=== PATIENT | female | born 1980 | race Caucasian/White ===

== ENCOUNTER 2016-08-09 05:25 | Inpatient (IN) | payer BC ==
[~2016-08-09] VITALS: Ht 165.1 cm; Wt 71.5 kg
[2016-08-09] VITALS (10 sets, daily range): BP systolic 109–142; BP diastolic 56–83; PULSE 71–100; RESP 16–19; Ht 165.1 cm; Wt 71.5 kg
[~2016-08-09 05:25] MED LIST: CALC500T PO; FERR-31 PO; FOLI-49 PO; PREN1TAB62 PO
[2016-08-09] MEDS ORDERED: LACTATED RINGER'S 1,000 ML IV SCH (05:39)
[2016-08-09] MEDS ORDERED: MISOPROSTOL 200 MCG TAB PR PRN ×2 (06:00→14:00)
[2016-08-09] MEDS ORDERED: CARBOPROST 250 MCG INJ IM PRN ×2 (06:00→14:00)
[2016-08-09] MEDS ORDERED: OXYTOCIN 30 UNITS/LR 500 ML IV SCH (06:00)
[2016-08-09] MEDS ORDERED: CEFAZOLIN 2 GM/50 ML (PMX) 50 ML IV SCH (06:00)
[2016-08-09] MEDS ORDERED: OXYTOCIN 30 UNITS/LR 500 ML IV PRN ×2 (06:00→14:00)
[2016-08-09] MEDS ORDERED: METHYLERGONOVINE 0.2 MG INJ IM PRN ×2 (06:00→14:00)
[2016-08-09 06:13] LABS: BASOPHILS % 0.2 % (0.0-2.0); EOSINOPHILS # 0.1 10^3/ul (0.0-0.5); EOSINOPHILS % 0.9 % (0.0-7.0); HEMATOCRIT 38.5 % (37.0-47.0); HEMOGLOBIN 13.3 g/dl (12.0-16.0); LYMPHOCYTES # 2.3 10^3/ul (0.8-2.9); LYMPHOCYTES % 22.3 % (15.0-51.0); MEAN CORPUSCULAR HGB CONC 34.5 g/dl (32.0-37.0); MEAN CORPUSCULAR VOLUME 89.8 fl (82.0-101.0); MEAN PLATELET VOLUME 10.1 fl (7.4-10.4); MONOCYTE # 0.9 10^3/ul (0.3-0.9); MONOCYTES % 8.5 % (0.0-11.0); NEUTROPHIL # 6.9 10^3/ul (1.6-7.5); NEUTROPHILS % 68.1 % (39.0-77.0); PLATELET COUNT 246 10^3/UL (140-440); RED BLOOD COUNT 4.29 10^6/ul (4.20-5.40); RED CELL DISTRIBUTION WIDTH 13.3 % (11.5-14.5); UNCORRECTED WBC 10.2 10^3/ul (4.8-10.8); WHITE BLOOD COUNT 10.2 10^3/ul (4.8-10.8)
[2016-08-09 06:19] LABS: INR 0.94; PROTIME 12.6 Sec (12.2-14.2)
[2016-08-09 06:20] LABS: PARTIAL THROMBOPLASTIN TIME 26.7 Sec (25.0-35.0)
[2016-08-09 06:36] LABS: CONDITION 1
[2016-08-09] MEDS ORDERED: OXYTOCIN 30 UNITS/LR 500 ML IV ONE (08:24)
[2016-08-09] MEDS ORDERED: EPHEDrine SULFATE 50 MG/5 ML SYG ONE (08:24)
[2016-08-09] MEDS ORDERED: morphine SULFATE/PF (10 MG/10 ML) INJ ONE (08:25)
[2016-08-09] MEDS ORDERED: ONDANSETRON 4 MG INJ ONE (08:25)
[2016-08-09] MEDS ORDERED: METOCLOPRAMIDE 10 MG INJ ONE (08:25)
[2016-08-09] MEDS ORDERED: OXYTOCIN 10 UNIT INJ ONE (08:25)
--- NOTE | 2016-08-09 08:28 | HP ---
Date/Time of Note Date/Time of Note DATE: 08/09/16 TIME: 08:20 OB - History Hx of Present Free Text/Dictation This is a 35 years old white female 4 para 1 SAB 2 with EDC of August 22, 2016 history of previous admitted at 39 weeks to [facility] for repeat This patient has been under the care of the [facility] and her course was not complicated with gestational diabetes - induced hypertension or any other medical or surgical conditions patient's past history [place] at age 10, history of one with section to spontaneous breast augmentation and tonsillectomy yeast 1999 Estimated Due Date: Aug 16, 2016 : 4 Para: 1 Spontaneous : 2 Care: Good Care Ultrasounds: Normal mid trimester US Obstetrical Complications: None Medical Complications: None Past Family/Social History * Past Medical, Surgical, Family and Obstetric Histories reviewed from chart. Rubella: immune RPR/VDRL: Negative GBS Status: Negative HBsAG: Negative OB Admission Exam Vital Signs Vital Signs Vital Signs Date Time Temp Pulse Resp B/P Pulse Ox O2 Delivery O2 Flow Rate FiO2 08/09/16 05:38 98.7 100 18 132/81 Room Air Physical Exam HEENT: WNL Heart: Rhythm Normal Lungs: Clear, Equal Abdomen: WNL Extremities: Normal Reflexes: Normal Cervical Dilatation: None Effacement: 0% Station: -1 Membranes: Intact Heart Rate: 130's Accelerations: Accelerations Present Decelerations: No Decelerations Varibility: Absent Last 72 hours Lab Results CBC & BMP 08/09/16 05:40 YANI SRINIVASAN MD Aug 09, 2016 08:28
[2016-08-09] MEDS ORDERED: BUPIVACAINE 0.75%/DEXT (SPINAL) 2 ML INJ ONE (08:31)
[2016-08-09 09:27] LABS: BARBITURATES NEGATIVE (NEGATIVE); BENZODIAZEPINES NEGATIVE (NEGATIVE); CANNABINOIDS NEGATIVE (NEGATIVE); COCAINE NEGATIVE (NEGATIVE); OPIATES NEGATIVE (NEGATIVE)
--- NOTE | 2016-08-09 10:19 | OPPN ---
Date/Time of Note Date/Time of Note DATE: 08/09/16 TIME: 10:14 Operative/Procedure Note 39 weeks previous section admitted for repeat Pre-Operative Diagnosis Same as above Post-Operative Diagnosis Same as above Surgeon: YANI SRINIVASAN MD [place] Polisher Operator: NEISHA LOVE MD Anesthesiologist: GARRETT PINZON MD Findings Live baby girl Apgars 7 and 9 Implants/Grafts: Not applicable Estimated blood loss: other (500 mL) Drains: Not applicable Specimens: Not Applicable Complications: None Anesthesia type: spinal YANI SRINIVASAN MD Aug 09, 2016 10:19
--- NOTE | 2016-08-09 10:42 | DELSUM ---
Delivery Summary A-C Datetime Report Generated by CPN: 08/09/2016 10:42 DELIVERY PERSONNEL Residential Care Facility Manager: Chely, Neyeeda MATERNAL INFORMATION Delivery Anesthesia: Spinal Medications in Delivery: SEE ANESTHESIA NOTES Estimated Blood Loss (ml): 600 Placenta Cultured: No Maternal Complications: None LABOR SUMMARY EDC: 08/16/2016 00:00 No. Babies in Womb: 1 Attempted: No Labor Anesthesia: None LABOR INFORMATION Reason for Induction: Not Applicable Oxytocin: N/A Group B Beta Strep: Positive Antibiotics # of Doses: ANCEF 2 GMS IVPB Antibiotics Time of Last Dose: ANCEF AT 0825 Steroids Given: None Reason Steroids Not Administered: Not Applicable MEMBRANES Membranes Rupture Method: Artificial Rupture of Membranes: 08/09/2016 08:52 Length of Rupture (hr): 0.02 Amniotic Fluid Color: Clear Amniotic Fluid Amount: Moderate Amniotic Fluid Odor: None STAGES OF LABOR Stage 3 hr: 0 Stage 3 min: 0 CSECTION DELIVERY Primary Indication: Repeat Elective Secondary Indication: N/A CSection Urgency: Elective CSection Incidence: Repeat Labor: No Labor Elective: Elective CSection Incision: Lower Uterine Transverse BABY A INFORMATION Delivery Date/Time: 08/09/2016 08:53 Method of Delivery: Born in Route : No : N/A Forceps: N/A Vacuum Extraction: N/A Shoulder Dystocia : N/A SHOULDER DYSTOCIA BABY A Delivery Date/Time: 08/09/2016 08:53 PRESENTATION/POSITION BABY A Presentation: Cephalic Cephalic Presentation: Vertex Breech Presentation: N/A PLACENTA INFORMATION BABY A Placenta Delivery Time : 08/09/2016 08:53 Placenta Method of Delivery: Manual Removal Placenta Status: Delivered SCORES BABY A Heart Rate 1 min: >100 bpm Resp Effort 1 min: Good Cry Reflex Irritability 1 min: Cough/Sneeze/Pulls Away Muscle Tone 1 min: Some Flexion of Extrem Color 1 min: Blue/Pale Resuscitation Effort 1 min: Tactile Stimulation SCORE 1 MIN: 7 Heart Rate 5 min: >100 bpm Resp Effort 5 min: Good Cry Reflex Irritability 5 min: Cough/Sneeze/Pulls Away Muscle Tone 5 min: Some Flexion of Extrem Color 5 min: Completely [place] SCORE 5 MIN: 9 INFANT INFORMATION BABY A Gestational Age at Delivery: 39.0 Gestational Status: Full Term- 39- 40.6 Weeks Outcome : Liveborn Condition : Stable Sex: Female IDENTIFICATION/MEDS BABY A ID Band Number: [id number] ID Band Location: Right Leg; Left Arm Sensor Applied: Yes Sensor Number: [id number] Sensor Location : Cord Clamp Vitamin K Given : Not Given Erythromycin Given: Not Given WEIGHT/LENGTH BABY A Infant Birthweight (gm): 3960 Weight (lb): 8 Infant Weight (oz): 12 Length (in): 21.00 Length (cm): 53.34 CORD INFORMATION BABY A No. Cord Vessels: 3 Nuchal Cord : N/A Cord Blood Taken: Yes Banking/Donate Info: N/A Infant Suction: Mouth; Nose ASSESSMENT BABY A Complications: Multiple Variable Decels Physical Findings at Delivery: Other Physical Findings- Other: BABY'S MUSCLE TONE MINIMAL Respirations: Grunting; Intercostal Retractions [employer]/ALS Called : Yes Care By: JOAQUINA MONTERROSO RN ; Ledy Enciso RT Transferred To: NICU
--- NOTE | 2016-08-09 10:42 | OPRPT ---
Intraop Record Datetime Report Generated by CPN: 08/09/2016 10:42 Datetime: 08/09/2016 08:29 OR Number: 3 TIMES/PROCEDURE Arrive OR: 08/09/2016 08:11 Depart OR: 08/09/2016 09:43 Anesthesia Start: 08/09/2016 08:22 Anesthesia End: 08/09/2016 09:52 Surgery Start: 08/09/2016 08:47 Surgery End: 08/09/2016 09:39 Preoperative Dx: REPEAT SECTION Surgical Procedure: Section Postoperative Dx: REPEAT SECTION C/S Decision Time: 08/09/2016 07:30 C/S Decision to Incision (min): 77 Uterine Incision: 08/09/2016 08:47 PERSONNEL Surgeon: Alisha Ferris Scrub: David Callahan Anesthesia Care Provider: Josh Ashford Care: See Delivery Summary for Infant Care Providers Others in OR: FOB Anesthesia Type: Spinal ASA Level: II RISK FOR INJURY Mode of Arrival: Ambulate Procedure Time Out: Correct Patient Identity; Accurate Procedure Consent Form; Agreement on Procedu re to be Done; Correct Patient Position; Relevant Images and Results are Properly Labeled and Displa yed; Addressed Need to Administer Antibiotics or Fluids for Irrigation; Safety Precautions Based on Patient History or Medication Use; Allergies Reviewed Preoperative Information: Preoperative Checklist Reviewed; Allergies Reviewed; NPO Status Verified RISK FOR ANXIETY/KNOW DEFICIT Emotional Status: Calm/Relaxed Interventions: Provided Education Based on Age and Identified Needs; Communicated Patient Concerns to Appropriate Members of the Health Care Team; Explained Sequence of Events and Perioperative Routi ne; Evaluated Response to Instructions RISK FOR PAIN Pain Teaching: Instructed on Pain Scale Pain Scale: 0.0 PREOPERATIVE OUTCOMES Preoperative Outcomes: Verbalizes/Indicates Decreased Anxiety, Ability to [place], Understanding of Pr ocedure and Sequence of Events. Questions Answered; Demonstrates Adequate Pain Management; Verbaliz es Comfort Related to Transfer/Transport RISK FOR INFECTION Skin Pre-Operative Site: Intact Other Site Details: CLEAR, AND FREE OF REDNESS, INFECTION OR BREAKDOWN Clip: Clip Clip Location: CLOSED LEG ABDOMEN Prep: Yes Prep By: Daniel XIE Prep Solution: Chlorohexadine Other Prep: GOPI WIPES Catheter: Dong Catheter Size: 16 Catheter Inserted By: Daniel XIE Surgical Wound Class: I-Clean Drain Type/Size: NKA Dressing Type: Secured Gauze Risk for Impaired Skin Integrity Position in OR: Supine Bony Prominences Protection: Arms Tucked/Padded Positioning Devices: N/A Risk for Hypothermia Warming Interventions: N/A Risk for Injury Safety Straps Applied: Legs Sequential Compression Device: Yes Electrosurgical Unit: Yes Electrosurgical Unit Number: [id number] Bipolar Number: LOT#[id number] EXP. 2018-05-24 Ground Pad Location: Right Anterior Thigh Coag Number: 55 Cut Number: 55 Estimated Blood Loss- OR (ml): 600 1st Count Sponge Count: Correct Needle Count: Correct Blade Count: Correct Instrument Count: Correct 2nd Count Sponge Count: Correct Needle Count: Correct Instrument Count: Correct 3rd Count Sponge Count: Correct Needle Count: Correct Blade Count: Correct Instrument Count: Correct Final Count Sponge Count 4: Correct Needle Count 4: Correct Blade Count 4: Correct Instrument Count 4: Correct Surgeon Acknowledged Count: Yes Final Count Resolution: Count Correct Intraoperative Data Equipment: Non-Invasive Blood Pressure; Pulse Oximeter; EKG Blood Products Given: N/A Implants/Prosthesis Implants/Prosthesis: N/A Grafts: N/A Irrigation Irrigants: Sterile H2O Irrigation Amount: 1000 Specimens Specimens: N/A Cultures Cultures: N/A X-Ray X-Ray Taken: No Postoperative Skin: Warm Pain Scale: 0 Condition: Awake; Alert Temperature: 98.7 Operative Outcomes: Patient's Surgery Performed Using Aseptic Technique and in a Manner to Prevent Cross-Contamination; Skin Remains Smooth, Intact, Non-reddened, Non-irritated, Free of Bruising; Cor e Body Temperature Remains in Expected Range Transfer To: L_D Datetime: 08/09/2016 05:54 Latex Allergies/Reactions: No Latex Allergies Datetime: 08/09/2016 05:44 Drug Allergies/Reactions: No Known Allergies (08/09/2016) Datetime: 08/09/2016 05:31 Drug Allergies/Reactions: No Known Allergies (09/15/2014)
--- NOTE | 2016-08-09 10:57 | OPR ---
DATE OF OPERATION: 08/09/2016 PREOPERATIVE DIAGNOSES: 1. Intrauterine at 39 weeks' gestation. 2. History of previous section. POSTOPERATIVE DIAGNOSES: 1. Intrauterine at 39 weeks' gestation. 2. History of previous section. PROCEDURE: Repeat transverse low cervical section. SURGEON: Yani Ferris MD FEED MILL TENDER: Nicholas Love MD ANESTHESIA: Spinal. ANESTHESIOLOGIST: Dr. Ashford. FINDINGS: Live baby girl with the Apgars 7 and 9. DETAILS OF THE PROCEDURE: Under satisfactory spinal anesthesia, the patient was prepped and draped and placed in supine position, tilted to the left. Pfannenstiel incision was made, carried through the subcutaneous tissue. Bleeders brought under control with electrocautery. Fascia incised to the length of the incision. Rectus muscle divided in midline. Peritoneum exposed, entered through a t ransverse incision. Exploration of abdomen, gravid uterus with normal tubes and ovaries and thinned out lower segment of the uterus. Bladder flap was developed. Transverse incision was made in the lower segment of the uterus. Amniotic sac ruptured. Clear amniotic fluid noted. Live baby girl wa s delivered from occiput posterior. Nasal oropharyngeal suction was performed. Baby handed to the team for immediate attention. The patient received 20 units of Pitocin. Placenta delivere d manually intact. Uterine cavity cleaned with wet sponge and drainage established. Uterus closed in 2 layers using Monocryl #1 in continuous fashion. Peritoneal cavity was irrigated with warm sali ne. Sponge, needle and instrument reported to be correct. Abdominal peritoneum closed with 2-0 chr omic catgut continuously. Rectus muscle approximated with three interrupted 2-0 chromic catgut. Fa scia closed with #1 PDS. The subcutaneous tissue after suctioning approximated with 2-0 chromic cat gut. Skin closed with subcuticular 3-0 Monocryl. ESTIMATED BLOOD LOSS: 500 mL. Urine bag contained 200 mL of clear urine. Patient tolerated procedure well, transferred to recover y room in a good condition. Dictated By: YANI FERRIS MD HF/NTS Conf#: [id number] DID#: [id number] CC: NICHOLAS LOVE MD;*EndCC*
[2016-08-09] MEDS ORDERED: KETOROLAC 30 MG INJ IV PRN (12:30)
[2016-08-09] MEDS ORDERED: LANOLIN 7 GM TUBE TOP PRN (14:00)
[2016-08-09] MEDS ORDERED: CEFAZOLIN 1 GM/50 ML (PMX) 50 ML IVPB SCH (14:00)
[2016-08-09] MEDS ORDERED: ACETAMINOPHEN/CODEINE #3 TAB PO PRN ×2 (14:00)
[2016-08-09] MEDS: OXYTOCIN 30 UNITS/LR 500 ML IV SCH ×3 (14:23→21:34)
[2016-08-09] MEDS ORDERED: NALOXONE (0.4 MG/ML) INJ IV PRN (14:30)
[2016-08-09] MEDS ORDERED: FENTAnyl 2MCG/ML-ROPIV 0.2% 100 ML BAG EPI SCH (14:30)
[2016-08-09] MEDS ORDERED: ONDANSETRON 4 MG INJ IV PRN (14:30)
[2016-08-09] MEDS ORDERED: morphine 2 MG INJ IV PRN (14:30)
[2016-08-09] MEDS: KETOROLAC 30 MG INJ IV PRN (20:47)
[2016-08-09] MEDS: SENNA/DOCUSATE NA (8.6MG/50MG) TAB PO SCH (21:00)
[2016-08-09] MEDS: DIPHENHYDRAMINE 50 MG INJ IV PRN (22:22)
[2016-08-09] MEDS: LACTATED RINGER'S 1,000 ML IV SCH (22:22)
[2016-08-10 00:04] VITALS: BP 100/53; PULSE 79; RESP 18
[2016-08-10] MEDS: OXYTOCIN 30 UNITS/LR 500 ML IV SCH ×2 (01:34→05:34)
[2016-08-10 04:50] VITALS: BP 98/56; PULSE 85; RESP 18
[2016-08-10] MEDS: KETOROLAC 30 MG INJ IV PRN (04:52)
[2016-08-10] MEDS: LACTATED RINGER'S 1,000 ML IV SCH (04:58)
[2016-08-10] MEDS: DIPHENHYDRAMINE 50 MG INJ IV PRN (04:58)
[2016-08-10 07:45] LABS: BASOPHILS % 0.3 % (0.0-2.0); EOSINOPHILS # 0.1 10^3/ul (0.0-0.5); EOSINOPHILS % 0.6 % (0.0-7.0); HEMATOCRIT 34.5 % (37.0-47.0); HEMOGLOBIN 11.7 g/dl (12.0-16.0); LYMPHOCYTES # 1.3 10^3/ul (0.8-2.9); LYMPHOCYTES % 13.8 % (15.0-51.0); MEAN CORPUSCULAR HEMOGLOBIN 30.9 pg (29.0-33.0); MEAN CORPUSCULAR VOLUME 90.8 fl (82.0-101.0); MEAN PLATELET VOLUME 9.4 fl (7.4-10.4); MONOCYTE # 0.7 10^3/ul (0.3-0.9); MONOCYTES % 7.6 % (0.0-11.0); NEUTROPHIL # 7.5 10^3/ul (1.6-7.5); NEUTROPHILS % 77.7 % (39.0-77.0); PLATELET COUNT 205 10^3/UL (140-440); RED CELL DISTRIBUTION WIDTH 13.4 % (11.5-14.5); UNCORRECTED WBC 9.6 10^3/ul (4.8-10.8); WHITE BLOOD COUNT 9.6 10^3/ul (4.8-10.8)
[2016-08-10 07:55] LABS: CONDITION 1
[2016-08-10 08:30] VITALS: BP 102/82; PULSE 87; RESP 17
[2016-08-10] MEDS: SENNA/DOCUSATE NA (8.6MG/50MG) TAB PO SCH ×2 (09:24→21:42)
[2016-08-10] MEDS: OXYCODONE/ACETAMINOPHEN (5/325) TAB PO PRN ×3 (09:24→21:43)
--- NOTE | 2016-08-10 11:07 | PN ---
Date/Time of Note Date/Time of Note DATE: 08/10/16 TIME: 11:06 OB Subjective Subjective Subjective Vital sign is stable, afebrile abdomen soft incision dry uterus firm bowel sound present extremity normal ambulation recommended OB Assessment/Plan Plan: Expectant Management YANI SRINIVASAN MD Aug 10, 2016 11:07
[2016-08-10] MEDS: IBUPROFEN 600 MG TAB PO SCH ×2 (12:59→18:41)
[2016-08-10 15:45] VITALS: BP 94/51; PULSE 86; RESP 16
[2016-08-10 21:15] VITALS: BP 113/56; PULSE 81; RESP 19
[2016-08-11] MEDS: IBUPROFEN 600 MG TAB PO SCH ×4 (00:51→17:18)
[2016-08-11 04:30] VITALS: BP 110/57; PULSE 82; RESP 18
[2016-08-11] MEDS: OXYCODONE/ACETAMINOPHEN (5/325) TAB PO PRN ×2 (06:13→20:56)
[2016-08-11 08:15] VITALS: BP 107/81; PULSE 79; RESP 18
[2016-08-11] MEDS: SENNA/DOCUSATE NA (8.6MG/50MG) TAB PO SCH ×2 (09:37→20:56)
--- NOTE | 2016-08-11 10:09 | PN ---
Date/Time of Note Date/Time of Note DATE: 08/11/16 TIME: 10:05 OB Subjective Subjective Subjective Post day 2 Afebrile vital sign is stable complaining of neck pain when she stands up, abdomen soft bowel sound present ,passing gas no BM enema recommended , anesthesiologist consult for the possible spinal headache YANI SRINIVASAN MD Aug 11, 2016 10:09
[2016-08-11 16:20] VITALS: BP 117/79; PULSE 80; RESP 19
[2016-08-11 19:50] VITALS: BP 114/70; PULSE 74; RESP 18
[2016-08-12] MEDS: IBUPROFEN 600 MG TAB PO SCH ×3 (00:13→12:14)
[2016-08-12] MEDS: OXYCODONE/ACETAMINOPHEN (5/325) TAB PO PRN (07:32)
[2016-08-12 08:00] VITALS: BP 119/75; PULSE 119; RESP 18
[2016-08-12] MEDS ORDERED: DIPHTH/TET/ACEL PERTUSS (ADULT) 0.5 ML VIAL IM* ONE (09:00)
--- NOTE | 2016-08-12 09:17 | DS ---
Date/Time of Note Date/Time of Note DATE: 08/12/16 TIME: 09:15 Obstetrical Discharge Record Final Diagnosis Final Diagnosis: Term delivered Section Section: Repeat Condition on Discharge Physical Assessment Last Vitals: Post day 3 Afebrile vital sign is stable abdomen soft uterus firm had normal bowel movement extremity normal postoperative instructions at home discussed with the patient recommended to make appointment to be seen at the office in 1 week Current Medications Medications (Trade) Dose Ordered Sig/Joy Route PRN Reason Start Time Stop Time Status Last Admin Dose Admin Cefazolin Sodium/ Dextrose 50 ml @ 100 mls/hr ONCE IV 08/09/16 06:00 08/09/16 13:39 DC Oxytocin/Lactated Ringer's 500 ml @ 125 mls/hr ONCE IV 08/09/16 06:00 08/09/16 13:39 DC 08/09/16 10:34 Oxytocin/Lactated Ringer's 500 ml @ 0 mls/hr ONCE PRN IV For Hemorrhage Management 08/09/16 06:00 08/09/16 13:39 DC Methylergonovine Maleate (Methergine) 0.2 mg ONCE PRN IM VAGINAL BLEEDING 08/09/16 06:00 08/09/16 13:39 DC Carboprost Tromethamine (Hemabate) 250 mcg ONCE PRN IM VAGINAL BLEEDING 08/09/16 06:00 08/09/16 13:39 DC Misoprostol 1000 mcg 1,000 mcg ONCE PRN PA VAGINAL BLEEDING 08/09/16 06:00 08/09/16 13:39 DC Lactated Ringer's (Lr) 1,000 ml @ 125 mls/hr Q8H IV 08/09/16 05:39 08/09/16 13:39 DC 08/09/16 05:52 Ephedrine Sulfate 50 mg 50 mg STK-MED ONCE .ROUTE 08/09/16 08:24 08/09/16 08:25 DC Oxytocin/Lactated Ringer's 500 ml @ ud STK-MED ONCE IV 08/09/16 08:24 08/09/16 08:25 DC Morphine Sulfate (Duramorph) 10 mg STK-MED ONCE .ROUTE 08/09/16 08:25 08/09/16 08:26 DC Ondansetron HCl (Zofran Inj) 4 mg STK-MED ONCE .ROUTE 08/09/16 08:25 08/09/16 08:26 DC Metoclopramide HCl (Reglan) 10 mg STK-MED ONCE .ROUTE 08/09/16 08:25 08/09/16 08:26 DC Oxytocin (Oxytocin) 10 units STK-MED ONCE .ROUTE 08/09/16 08:25 08/09/16 08:26 DC Bupivacaine HCl/ Dextrose (Marcaine 0.75% (Spinal)) 2 ml STK-MED ONCE .ROUTE 08/09/16 08:31 08/09/16 08:32 DC Ketorolac Tromethamine (Toradol) 30 mg Q6H PRN IV PAIN 08/09/16 12:30 08/09/16 14:04 DC 08/09/16 12:35 Acetaminophen/ Codeine Phosphate (Tylenol No.3) 1 tab Q4H PRN PO PAIN LEVEL 4-6 08/09/16 14:00 Acetaminophen/ Codeine Phosphate (Tylenol No.3) 2 tab Q4H PRN PO PAIN LEVEL 7-10 08/09/16 14:00 08/11/16 09:36 Oxycodone/ Acetaminophen (Percocet (5/ 325)) 1 tab Q4H PRN PO PAIN LEVEL 4-6 08/09/16 14:00 08/11/16 06:13 Oxycodone/ Acetaminophen (Percocet (5/ 325)) 2 tab Q4H PRN PO PAIN LEVEL 7-10 08/09/16 14:00 08/12/16 07:32 Ibuprofen (Motrin) 600 mg Q6 PO 08/10/16 13:00 08/12/16 05:43 Simethicone (Mylicon) 160 mg Q8H PRN PO DISTENSION/GAS/BLOATING 08/09/16 14:00 Senna/Docusate Sodium (Senokot-S) 1 tab BID PO 08/09/16 21:00 08/11/16 20:56 Lanolin (Dvw-A-Qubmll) 1 applic BEDSIDE MEDICATION PRN TOP BEDSIDE FOR SHEN TO NIPPLES 08/09/16 14:00 08/09/16 14:23 Diphtheria/ Tetanus/Acell Pertussis 0.5 ml 0.5 ml ONCE ONCE IM* 08/12/16 09:00 08/12/16 09:01 DC Oxytocin/Lactated Ringer's 500 ml @ 0 mls/hr ONCE PRN IV For Hemorrhage Management 08/09/16 14:00 Methylergonovine Maleate (Methergine) 0.2 mg ONCE PRN IM VAGINAL BLEEDING 08/09/16 14:00 Carboprost Tromethamine (Hemabate) 250 mcg ONCE PRN IM VAGINAL BLEEDING 08/09/16 14:00 Misoprostol 1000 mcg 1,000 mcg ONCE PRN PA VAGINAL BLEEDING 08/09/16 14:00 Cefazolin Sodium 50 ml @ 100 mls/hr ONCE IVPB 08/09/16 14:00 08/09/16 14:29 DC 08/09/16 15:35 Oxytocin/Lactated Ringer's 500 ml @ 125 mls/hr Q4H IV 08/09/16 13:34 08/10/16 17:44 DC 08/09/16 18:53 Naloxone HCl (Narcan) 0.1 mg Q2M PRN IV FOR RESP RATE 8 OR LESS 08/09/16 14:30 08/10/16 14:29 DC Ketorolac Tromethamine (Toradol) 30 mg Q6H PRN IV PAIN 08/09/16 14:30 08/10/16 14:29 DC 08/10/16 04:52 Morphine Sulfate (morphine) 2 mg Q3H PRN IV PAIN LEVEL 1-5 08/09/16 14:30 08/10/16 14:29 DC Diphenhydramine HCl (Benadryl) 25 mg Q6H PRN IV ITCHING 08/09/16 14:30 08/10/16 14:29 DC 08/10/16 04:58 Ondansetron HCl (Zofran Inj) 4 mg Q6H PRN IV NAUSEA AND/OR VOMITING 08/09/16 14:30 08/10/16 14:29 DC Fentanyl/ Ropivacaine 100 ml 100 ml EPIDURAL INFUSION EPI 08/09/16 14:30 Lactated Ringer's (Lr) 1,000 ml @ 125 mls/hr Q8H IV 08/09/16 22:30 08/10/16 09:00 DC 08/10/16 04:58 Voiding: Yes Bowel Movement: Yes Breast: Filling Abdomen and Incision: Healing well dry Calf Tenderness: No Patient Condition: Good YANI SRINIVASAN MD Aug 12, 2016 09:17
[2016-08-12] MEDS: SENNA/DOCUSATE NA (8.6MG/50MG) TAB PO SCH (10:33)
== END 2016-08-12 16:22 | disposition home or self-care (01) | DRG 766 ==
LOC: L-D 05:25 → PP1 13:21
PROVIDERS: ADMIT Obstetrics & Gynecology; ATTEND Obstetrics & Gynecology
PROC: 10907ZC Drainage of Amniotic Fluid, Therapeutic from Products of Conception, Via Natural or Artificial Opening (ICD-10-PCS; 2016-08-09)
PROC: 10D00Z1 Extraction of Products of Conception, Low, Open Approach (ICD-10-PCS; principal; 2016-08-09 07:30)
DX: O34.211 Maternal care for low transverse scar from previous cesarean delivery (principal); O99.824 Streptococcus B carrier state complicating childbirth; Z3A.39 39 weeks gestation of pregnancy; Z37.0 Single live birth; O09.523 Supervision of elderly multigravida, third trimester
CPT/HCPCS: 80307; 85025; 85610; 85730; 86592; 86850; 86900; 86901; 87340; 90715; 94760; 99464; J0690; J1200; J1885; J2274; J2405; J2590; J2765; J7120